=== PATIENT | male | born 1955 | race Caucasian/White ===

== ENCOUNTER → 2020-10-05 08:59 | Outpatient (CLI) | payer MEDICARE, OTHER, SELFPAY ==
--- NOTE | 2020-10-05 09:02 | DI.NM.S_ITS ---
PROCEDURE: NM BONE SCAN WHOLE BODY RADIOPHARMACEUTICAL: 21.6 mCi Tc-99m MDP IV. INDICATIONS: BLADDER MASS TECHNIQUE: Delayed whole-body scintigrams were obtained approximately 3-4 hours after intravenous injection of radiotracer. Anterior and posterior views were acquired from vertex to feet. Additional left and right oblique views of the pelvis were obtained. COMPARISON: [facility], CT, CT CHEST ABD PEL W CON, 10/05/2020, 9:55. FINDINGS: Physiologic uptake is noted within the kidneys and bladder. Left hydronephrosis and hydroureter are present. Degenerative uptake is noted within the spine, knees and small bones of the feet. IMPRESSION: 1. No visualized osseous metastatic disease. 2. Left hydronephrosis and hydroureter. Dictated by: Venecia Olivares M.D. on 10/05/2020 at 17:51 Approved by: Venecia Olivares M.D. on 10/05/2020 at 17:53
--- NOTE | 2020-10-05 09:52 | DI.CT.S_ITS ---
PROCEDURE: CT CHEST ABD PEL W CON INDICATIONS: BLADDER MASS TECHNIQUE: After the administration of oral and intravenous contrast, 5 mm thick sections acquired from the lung apices to the symphysis. 5 mm coronal and sagittal reformats were performed, with additional 7 mm coronal MIP reformats through the lungs. For radiation dose reduction, the following was used: automated exposure control, adjustment of mA and/or kV according to patient size. COMPARISON: [facility], CT, THORAX WITH CONTRAST, 02/21/2012, 11:30. [facility], XA, SI NEPHROSTOMY, 10/01/2020, 12:11. [facility], CT, CT ABDOMEN PELVIS WITHOUT CONTRAST, 09/24/2020, 11:13. [facility], CT, CT IVP, 08/27/2020, 17:48. FINDINGS: Image quality: Excellent. CHEST: Lungs and pleura: No acute airspace opacities. Several pulmonary nodules. For example: -Right lower lobe 0.7 cm, (3/145), previously 0.5 cm. -Right lower lobe 0.6 cm, (3/195), previously 0.7 cm in 2011. -Left lower lobe 0.5 cm, (3/166), previously 0.5 cm in 2012. -Left lower lobe subpleural 0.5 cm, (3/254), unchanged and more remotely 0.6 cm in 2012. No pleural effusions or pneumothorax. Central and peripheral airways appear patent and normal in caliber. Mediastinum: Heart size is normal. No pericardial effusion. No mediastinal or hilar adenopathy by size criteria. Thoracic aorta and central pulmonary arteries are normal in size. Esophagus is normal in caliber. No hiatal hernia. Chest wall: No axillary or supraclavicular adenopathy by size criteria. Thyroid gland is unremarkable. ABDOMEN: Solid organs: Liver is normal in size and enhancement. Gallbladder is unremarkable . Biliary system is non dilated. Pancreas enhances normally. Superior pole of the spleen subtle hypodense lesion measuring approximately 3.8 cm, (2/55), more conspicuous. No adrenal nodules. Kidneys demonstrate normal size. Right kidney percutaneous nephrostomy with the catheter coiled in the renal pelvis. There is trace air within the renal pelvis which is likely due to recent procedure. Left kidney moderate pelvocaliectasis, unchanged. There is moderate mid left hydroureter, similar to the prior exam. Bilateral simple appearing renal cysts. Peritoneum and bowel: Bowel loops demonstrate normal wall thickness and caliber. Normal appendix. No free fluid or air. Nodes and vessels: Right external iliac lymph node measuring 3.5 x 1.9 cm, (2/105), previously 2.8 x 1.7 cm on 08/27/2020. Mild stranding about the adjacent right ureter. Right pelvic sidewall node measuring 1.1 x 1 cm, (2/109). Prominent right peritoneal nodule measuring 0.9 cm, (2/77), previously 0.8 cm. Aorta and inferior vena cava are normal in size. Moderate plaque. Miscellaneous: No ventral hernias. PELVIS: Genitourinary: Abnormal thickening of the right bladder base, (2/109), appears increased compared to 08/27/2020. Miscellaneous: No inguinal hernias or adenopathy. Bones: No suspicious bony lesions. No vertebral body compression fractures. IMPRESSION: 1. Right bladder wall thickening keeping with bladder cancer. 2. Right percutaneous nephrostomy tube. Resolved hydronephrosis. 3. Moderate left pelvocaliectasis which is not significantly changed in the short-term interval. However, this is increased compared to 08/27/2020. There is focal dilatation of the mid left ureter. 4. Right pelvic adenopathy. 5. Suspected ill-defined lesion in the superior pole of the spleen. This could represent metastatic disease. -If indicated consider further evaluation with MRI abdomen. 6. Multiple small pulmonary nodules. 1 of the nodules may be slightly increased in size but this could be due to differences in slice selection and slice thickness compared to 2011. Dictated by: Francisco Marcus M.D. on 10/05/2020 at 11:32 Approved by: Francisco Marcus M.D. on 10/05/2020 at 12:06
== END ==
PROVIDERS: PCP Internal Medicine; Referring Provider Urology; Visit Provider Urology
DX: N32.89 Other specified disorders of bladder (principal); C67.8 Malignant neoplasm of overlapping sites of bladder; N13.30 Unspecified hydronephrosis; R91.8 Other nonspecific abnormal finding of lung field; R59.0 Localized enlarged lymph nodes; N28.89 Other specified disorders of kidney and ureter
CPT/HCPCS: 71260; 74177; 78306; A9503

== ENCOUNTER 2021-05-07 12:12 | Emergency (ER) | payer MEDICARE, OTHER, SELFPAY ==
[2021-05-07 12:24] VITALS: BP 179/108; PULSE 86; RESP 20; TEMP 36.3; O2SAT 95; BMI 34.0
[2021-05-07 13:21] LABS: Bacteria Urine Many (>30); Culture Indicated Urine Specimen Cultured; RBC Urine 5-10/HPF (0-5/HPF); Squamous Epithelial Cell Urine 0-1 /HPF (0-5/HPF); WBC Urine >100/HPF (0-5/HPF)
[2021-05-07 15:06] VITALS: BP 161/88; PULSE 79; TEMP 36.9; O2SAT 95
[2021-05-07 15:30] VITALS: BP 140/85; PULSE 92; RESP 18; O2SAT 97
--- NOTE | 2021-05-07 15:45 | PC.NURSE ---
Patient has bladder cancer that has metastasized. He was sent here by Dr. Arambula at for urinary catheter. 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 Bladder scan performed and lidocaine jelly applied for impending catheter insertion. Provider aware.
[2021-05-07] MEDS: LIDOCAINE 2% (GLYDO) 6 ML GEL TOP (15:48)
[2021-05-07 16:00] VITALS: BP 147/83; PULSE 88; RESP 17; O2SAT 96
--- NOTE | 2021-05-07 16:26 | ED.MALEGU ---
HPI - Male Genitourinary General Chief complaint: Urogenital-Male Stated complaint: urinary retention from bladder ca today Time Seen by Provider: 05/07/21 15:46 Source: patient Mode of arrival: Ambulatory Limitations: no limitations History of Present Illness HPI Narrative: This is a pleasant 66-year-old male comes emergency department with known bladder cancer today. He has had a renal stent placed on the right as there was a mass blocking the ureteral opening. Patient's follows with Dr. Zepeda and Urology at [facility]. Patient states that they had discussed having his bladder excised but have elected to pursue different treatment to shrink the bladder masses and metastases. He noted recently that he has had lumps in his penis. His urologist has palpated them is concerned about metastases. He had CT imaging on which did show changes. He has had increasing dysuria, frequency and a sense of incomplete emptying with fullness in his bladder over the last several days and on the right side. He states he had to push on his bladder to help him urinate and was dribbling urine. He had a Lerner catheter placed here and feels much better. He denies fevers or chills, no chest pain or shortness of breath, no nausea or vomiting. No constipation. Patient did recently finish a prescription of Bactrim a week ago for UTI. Related Data Home Medications Medication Instructions Recorded Confirmed ASPIRIN (#ASPIRIN) 81 mg PO #0 02/16/12 MULTIVITAMIN (#MULTIPLE VITAMINS) 1 cap PO #0 02/16/12 rabeprazole 20 mg tablet,delayed 20 mg PO #0 02/16/12 release (AcipHex) VITAMIN D (Vitamin D3) 1,000 unit PO QDAY #0 04/17/12 chlorthalidone 25 mg tablet 25 mg PO QDAY #0 11/10/16 lisinopril 40 mg tablet 40 mg PO QDAY #0 11/10/16 Previous Rx's Medication Instructions Recorded azithromycin 250 mg tablet 250 - 500 mg PO QDAY #6 tab 11/10/16 (Zithromax) sulfamethoxazole 800 1 tab PO Q12H #20 tab 05/07/21 mg-trimethoprim 160 mg tablet (Bactrim DS) Allergies Allergy/AdvReac Type Severity Reaction Status Date / Time bupropion [From WELLBUTRIN] Allergy Mild Verified 05/07/21 12:23 citalopram [CITALOPRAM] Allergy Mild Verified 05/07/21 12:23 risperidone [From RISPERDAL] Allergy Mild Verified 05/07/21 12:23 sertraline [SERTRALINE] Allergy Mild Verified 05/07/21 12:23 Review of Systems Review of Systems ROS Unobtainable: All systems reviewed & are unremarkable except as noted in HPI and below Patient History Social History Smoking Status: Former smoker Smoking Status: Former smoker Substance Use Type: does not use Exam Narrative Exam Narrative: GENERAL: Alert and oriented x three, male in mild distress. HEENT: Head normocephalic, atraumatic, EOMI, pupils reactive, face symmetric, moist mucous membranes NECK: Supple, full range of motion CARDIOVASCULAR: Regular rate and rhythm without murmurs, rubs or gallops. RESPIRATORY: Breath sounds equal bilaterally, no wheezes rales or rhonchi. ABDOMEN: Soft, nontender. Normoactive bowel sounds all 4 quadrants. No guarding or rebound, rigidity, no mass : No CVA tenderness. Male: normal external examination, no penile discharge or lesions, patient does have what feels like a cyst at the 6 o'clock position of the head of the penis there is also in lesion felt about mid shaft with a fullness that is nontender and non mobile at the 3 o'clock position wrapping around to the 12 o'clock position. Non-tender, cremasteric reflex intact, no inguinal hernias noted. Lerner catheter has been placed and is draining yellow urine. EXTREMITIES: Normal range of motion, no clubbing or edema. Neurovascularly intact NEUROLOGICAL: Cranial nerves II through XII grossly intact. Moving all extremities SKIN: Warm, dry, no petechiae, no rashes or lesions. Initial Vital Signs Initial Vital Signs: Vital Signs Temperature 97.3 F L 05/07/21 12:24 Pulse Rate 86 05/07/21 12:24 Respiratory Rate 20 05/07/21 12:24 Blood Pressure 179/108 H 05/07/21 12:24 Pulse Oximetry 95 05/07/21 12:24 Course Orders Ordered: ED Orders 05/07/21 13:07 Urine Culture Stat Urine Microscopic Stat 05/07/21 16:46 BMP [Basic Metabolic Panel] Stat CBC Auto Diff [Complete Blood Count AUTO DIFF] Stat Discontinued Medications Lidocaine HCl (Lidocaine 2% (Glydo) 6 Ml Gel) 6 ml TOP NOW ONE Stop: 05/07/21 12:32 Last Admin: 05/07/21 15:48 Dose: 6 ml Documented by: ANTONI Phenazopyridine HCl (Phenazopyridine 100 Mg Tablet) 200 mg PO NOW ONE Stop: 05/07/21 16:39 Last Admin: 05/07/21 16:45 Dose: 200 mg Documented by: EDGAR Trimethoprim/Sulfamethoxazole (Trimeth/Sulfa 160/800 (Ds) Tablet) 1 tab PO NOW ONE Stop: 05/07/21 16:39 Last Admin: 05/07/21 16:45 Dose: 1 tab Documented by: EDGAR Trimethoprim/Sulfamethoxazole (Trimeth/Sulfa 160/800 Prepack) 1 bottle MISC SEEINSTR ONE Stop: 05/07/21 17:29 Last Admin: 05/07/21 17:32 Dose: Not Given Documented by: EDGAR Trimethoprim/Sulfamethoxazole (Trimeth/Sulfa 160/800 (Ds) Tablet) 2 tab PO NOW ONE Stop: 05/07/21 17:33 Last Admin: 05/07/21 17:39 Dose: 2 tab Documented by: EDGAR Reevaluation(s) Reevaluation #1: Patient's Lerner catheter is draining well. Vital Signs Vital signs: Vital Signs - 8 hr 05/07/21 12:24 05/07/21 15:06 05/07/21 15:30 Temperature 97.3 F L 98.5 F Pulse Rate 86 79 92 H Respiratory Rate 20 18 Blood Pressure 179/108 H 161/88 H 140/85 Pulse Oximetry 95 95 97 05/07/21 16:00 05/07/21 16:30 05/07/21 17:00 Temperature Pulse Rate 88 86 74 Respiratory Rate 17 Blood Pressure 147/83 H 158/96 H 151/81 H Pulse Oximetry 96 98 97 MDM - Male Genitourinary Lab Data Result diagrams: 05/07/21 16:46 05/07/21 16:46 Labs: Lab Results 05/07/21 05/07/21 05/07/21 Range/Units 13:07 16:46 16:46 WBC 5.2 (4.5-11.0) X10^3/uL RBC 4.32 L (4.5-5.9) X10^6/uL Hgb 12.3 L (13.5-17.5) g/dL Hct 36.6 L (41-53) % MCV 84.7 (80-100) fL MCH 28.5 (26-34) PG MCHC 33.6 (30-36) % RDW 15.0 H (11.6-14.8) % Plt Count 145 L (150-400) X10^3/uL Neut % (Auto) 61.8 (50-75) % Lymph % (Auto) 20.1 L (25-40) % Dickey % (Auto) 10.0 (3-14) % Eos % (Auto) 7.4 H (2-4) % Baso % (Auto) 0.7 (0-2) % Neut # (Auto) 3200 (0599-9581) /uL Lymph # (Auto) 1000 L (9088-7857) /uL Dickey # (Auto) 500 (0-900) /uL Eos # (Auto) 400 (0-450) /uL Baso # (Auto) 0 (0-100) /uL Sodium 139 (137-145) mmol/L Potassium 4.3 (3.4-5.1) mmol/L Chloride 103 (98-107) mmol/L Carbon Dioxide 31 (22-32) mmol/L BUN 17 (9-20) mg/dL Creatinine 1.15 (0.66-1.25) mg/dL Estimated GFR > 60.0 (>60) mL/min BUN/Creatinine Ratio 14.8 (6-22) Glucose 173 H (80-110) mg/dL Calcium 9.4 (8.4-10.2) mg/dL Urine RBC 5-10/hpf H (0-5/HPF) Urine WBC >100/hpf H (0-5/HPF) Ur Squamous Epith Cells 0-1 /hpf (0-5/HPF) Urine Bacteria Many (>30) H (None) Ur Culture Indicated? Specimen cultured Urine Dip Bedside Urine Glucose Negative Bedside Urine Bilirubin - Negative Bedside Urine Ketone - Negative Urine Specific [place] 1.020 Bedside Urine Occult Blood +++ Bedside Urine pH 6.0 Bedside Urine Protein + 30 Bedside Urine Urobilinogen - Negative Bedside Urine Nitrite + Positive Bedside Urine Leukocytes ++ 125 Esterase MDM Narrative Medical decision making narrative: This is a pleasant 66-year-old male who comes in with complaint of urinary retention and dribbling urine. Patient has known bladder cancer with metastases, he has had a stent placed on the right ureter for blockage of his right ureter. Patient has also been noted to have masses in the penis by his urologist which are concerning for metastases. He follows with Oncology with Dr. Zepeda and his urologist is at [facility]. He has had some burning dysuria and retention type symptoms. He was recently on Bactrim for UTI which improved his symptoms. Patient had Lerner catheter placed which patient tolerated well. He drained urine immediately after this. Urine is suspicious for infection today and was placed back on Bactrim with a continued prescription. Labs were obtained as he does have a ureteral stent and had some retention, his renal function is appropriate he has a mild anemia. Imaging was not repeated as he just had imaging on and has close follow-up with his urologist. Patient was encouraged to return if worsening symptoms. Discharge Plan Departure Patient Disposition: Home Clinical Impression: Acute retention of urine, Acute UTI, Bladder cancer Instructions: How to Care for Your Lerner Catheter -- Male Activity Restrictions/Additional Instructions: Follow-up with your urologist. Contact their office this coming week. I would recommend antibiotics it does appear you have infection in your urine today. Take Bactrim twice daily until gone. You may take Pyridium 1 tablet every 8 hours. This will turn her urine bright orange. Prescription sent to [facility] in [place]. Please return for fevers, if you are not having any urine draining from her Lerner catheter if it appears blocked, few having signs of bleeding or large clot in your catheter, lightheadedness or passing out, vomiting, black or bloody stools or other new or concerning symptoms. Prescriptions: New sulfamethoxazole-trimethoprim [Bactrim DS] 800-160 mg tablet 1 tab PO Q12H Qty: 20 0RF No Action rabeprazole [AcipHex] 20 MG tablet,delayed release (DR/EC) 20 mg PO Qty: 0 0RF ASPIRIN (#ASPIRIN) 81 mg PO Qty: 0 0RF MULTIVITAMIN (#MULTIPLE VITAMINS) 1 cap PO Qty: 0 0RF VITAMIN D (Vitamin D3) 1,000 unit PO QDAY Qty: 0 0RF chlorthalidone 25 MG tablet 25 mg PO QDAY Qty: 0 0RF lisinopril 40 MG tablet 40 mg PO QDAY Qty: 0 0RF azithromycin [Zithromax] 250 MG tablet 250 - 500 mg PO QDAY Qty: 6 0RF Referrals: Willie Kidd MD [Primary Care Provider] -
[2021-05-07 16:30] VITALS: BP 158/96; PULSE 86; O2SAT 98
[2021-05-07] MEDS: TRIMETH/SULFA 160/800 (DS) TABLET 1 TAB PO (16:45)
[2021-05-07] MEDS: PHENAZOPYRIDINE 100 MG TABLET 200 MG PO (16:45)
[2021-05-07 16:52] LABS: Add Manual Diff / Slide Review NO; Basophils Absolute Auto 0 /uL (0-100); Basophils Percent Auto 0.7 % (0-2); Eosinophils Absolute Auto 400 /uL (0-450); Eosinophils Percent Auto 7.4 % (2-4); Hematocrit 36.6 % (41-53); Hemoglobin 12.3 g/dL (13.5-17.5); Lymphocytes Absolute Auto 1000 /uL (1100-4500); Lymphocytes Percent Auto 20.1 % (25-40); Mean Corpuscular HGB Conc 33.6 % (30-36); Mean Corpuscular Hemoglobin 28.5 PG (26-34); Mean Corpuscular Volume 84.7 fL (80-100); Monocytes Absolute Auto 500 /uL (0-900); Neutrophils Absolute Auto 3200 /uL (1500-7000); Neutrophils Percent Auto 61.8 % (50-75); Platelet Count 145 X10^3/uL (150-400); Red Blood Cell Count 4.32 X10^6/uL (4.5-5.9); White Blood Cell Count 5.2 X10^3/uL (4.5-11.0)
[2021-05-07 17:00] VITALS: BP 151/81; PULSE 74; O2SAT 97
[2021-05-07 17:03] LABS: BUN Creatinine Ratio 14.8 (6-22); Blood Urea Nitrogen 17 mg/dL (9-20); Calcium 9.4 mg/dL (8.4-10.2); Carbon Dioxide 31 mmol/L (22-32); Chloride 103 mmol/L (98-107); Estimated Glomerular Filt Rate > 60.0 mL/min (>60); Glucose 173 mg/dL (80-110); HEMOLYSIS < 15 (0-50); Potassium 4.3 mmol/L (3.4-5.1); Sodium 139 mmol/L (137-145)
[2021-05-07] MEDS: TRIMETH/SULFA 160/800 (DS) TABLET 2 TAB PO (17:39)
== END 2021-05-07 17:44 | disposition home or self-care (01) ==
PROVIDERS: Emergency Provider Emergency Medicine; PCP Internal Medicine
DX: N39.0 Urinary tract infection, site not specified (principal); R33.9 Retention of urine, unspecified; C67.9 Malignant neoplasm of bladder, unspecified; B95.8 Unspecified staphylococcus as the cause of diseases classified elsewhere; Z16.39 Resistance to other specified antimicrobial drug
CPT/HCPCS: 36415; 51702; 51798; 80048; 81003; 81015; 85025; 87077; 87086; 87147; 87186; 99283; 99284

== ENCOUNTER → 2021-06-29 11:40 | Outpatient (CLI) | payer MEDICARE, OTHER, SELFPAY ==
--- NOTE | 2021-06-29 | DI.US.S_ITS ---
PROCEDURE: US PERIPH VENOUS LOW EXTREM LT INDICATIONS: EDEMA TECHNIQUE: Real-time imaging, as well as color and pulse Doppler interrogation, were performed of the lower extremity deep veins from the inguinal ligament to the popliteal fossa. COMPARISON: None. FINDINGS: The common femoral, femoral and popliteal veins are normally compressible, and free of intraluminal thrombus. Color and pulse Doppler demonstrate normal phasic intraluminal flow. There is normal augmentation response to distal compression maneuver. IMPRESSION: Negative for deep venous thrombosis. Dictated by: Garret Mcclure M.D. on 06/29/2021 at 11:55 Approved by: Garret Mcclure M.D. on 06/29/2021 at 11:55
== END ==
PROVIDERS: PCP Internal Medicine; Referring Provider Physician Assistant; Visit Provider Physician Assistant
DX: R22.42 Localized swelling, mass and lump, left lower limb (principal)
CPT/HCPCS: 93971